=== PATIENT | female | born 1955 | race African-American/Black ===

== ENCOUNTER 2016-08-02 07:59 | Inpatient (IN) ==
[2016-08-02] MEDS ORDERED: MECLIZINE 25 MG TABLET PO STA (09:04)
[2016-08-02] MEDS ORDERED: DIAZEPAM 10 MG/2 ML SYRINGE IV STA (09:04)
--- NOTE | 2016-08-02 09:04 | Emergency Department Note ---
Jurgen Ford Meredith, am scribing for, and in the presence of, Geoff Crawley MD 08: 46. Denisa Ford James D, MD, personally performed the services described in this documentation, ascribed by Karo Seaman in my presence, and it is both accurate and complete . Arrival - Arrival Chief Complaint: Dizziness Stated Complaint: n/v ED Nursing Triage Note: Pt c/o Dizziness, nausea, and vomiting since 0700. Mode of Arrival: Wheelchair Limitations: No Limitations Source: Patient, Significant other (), Old Records Reviewed, RN Notes Reviewed Time Seen by Provider: 08/02/16 08:44 - History of Present Illness HPI Narrative: Pt is a 61 y/o black female reporting to the ED with c/o dizziness, nausea, and vomiting which onset at 0700 this morning. She describes the dizziness at room spinning which is worse when moving her head. Pt has a history of CAD, HTN, and HLD. notes that pt had a CABG on 2015. Onset (ago): hour(s) Allergies/Adverse Reactions: Allergies Allergy/AdvReac Type Severity Reaction Status Date / Time No Known Allergies Allergy Unverified 03/29/16 11:43 Home Medications: Home Medications Medication Instructions Recorded Confirmed Type Aspirin [Ecotrin] 81 mg PO DAILY 04/04/16 08/02/16 History Diltiazem HCl [Diltiazem ER (12 90 mg PO BID 04/04/16 08/02/16 History hr)] Lovastatin 20 mg PO DAILY W/SUPPER 04/04/16 08/02/16 History Triamterene/Hydrochlorothiazid 1 tablet PO DAILY 04/04/16 08/02/16 History [Triamterene-Hctz 75-50 mg Tab] Review of System - Review of System 12 point system: reviewed and no additional remarkable complaints except as stated - Review of System Gastrointestinal: Present: as per HPI, nausea, vomiting Neurological: Present: as per HPI, vertigo Medical,Surgical,& Family Hx - Medical History Cardio: History of: CAD, Hypertension Endocrine: History of: Dyslipidemia - Surgical History Cardiac Surgeries: Sugical HX of: Cardiac Catheterization, Cardiac Surgery ( CABG Mar 22) Abdominal Surgeries: Surgical HX of: Cholecystectomy Reproductive Surgeries: Surgical HX of;: Hysterectomy Orthopedic Surgeries: Surgical HX of;: Orthopedic Surgery (left wrist surgery) - Family History Family History: Reports;: Family Cancer, Family Diabetes, Family Heart Disease, Family Hypertension, Family Stroke - Social History Smoking Status: Never smoker Exam Physical Examination: GENERAL: This is a well-nourished, well-developed black female in no apparent distress. VITAL SIGNS: Temperature: 97.0, Pulse: 82, Respirations: 18, Blood pressure: 194 /107, O2 Saturation: 99 HEENT: Head is normocephalic and atraumatic. Pupils are equally round and reactive to light. Extraocular movement are intact. Oropharynx is benign with moist mucous membranes. [place]-Hallpike maneuver is negative. NECK: Neck is soft and supple without tenderness. There are no masses. There is no lymphadenopathy. LUNGS: Lungs are clear to auscultation bilaterally. Chest rises symmetrically. There is no chest wall tenderness. CV: Heart is regular rate and rhythm without murmurs, rubs, or gallops. ABDOMEN: Abdomen is soft, non-tender to palpation. There are no abnormal masses palpated. There is no organomegaly. Bowel sounds are present and active. SKIN: Skin is warm and dry. No rash. EXTREMITIES: Patient has full range of motion without tenderness. There is no pedal edema. NEUROLOGIC: Awake, alert, and oriented x4. Cranial nerves II through XII are grossly intact. There are no motorsensory deficits. PSYCHIATRIC: Normal affect. Normal mood. Vital Signs: Vital Signs Temperature 98.2 F 08/03/16 04:00 Pulse Rate 72 08/03/16 04:00 Respiratory Rate 20 08/03/16 04:00 Blood Pressure 146/80 08/03/16 04:00 O2 Sat by Pulse Oximetry 98 08/03/16 04:00 Course Course Narrative: Liver was unsuccessful. Patient continues to have nausea or vomiting. She will be admitted. - Consultations Consultation #1: Discussed with hospitalist. Patient will be admitted to their service. Time: 14:01 Results - Labs CBC & BMP: 08/02/16 09:09 08/02/16 09:09 Lab Results: I have reviewed the patients labs Labs: Laboratory Tests 08/02/16 09:09 WBC 10.4 RBC 4.94 Hgb 12.7 Hct 40.7 MCV 82.4 L MCH 26 L MCHC 31.2 L Plt Count 233 Neut % (Auto) 76.0 H Lymph % (Auto) 16.4 L Neut # (Auto) 7.9 H Laboratory Tests 08/02/16 09:09 INR 1.1 PT Patient/Control Mix 11.2 - EKG EKG results: interpreted by CARMEN (EKG: Normal sinus rhythm with a rate of 66, sinus arrhythmia, nonspecific ST-T wave changes, normal axis.) - Diagnostic Findings Procedure: Chest x-ray: image reviewed by me (Old median sternotomy, no infiltrates, no pleural effusions.), CT: image reviewed by me, report reviewed by me (CT head: No acute intracranial lesion or hemorrhage.) Disposition Clinical Impression: Vertigo Case discussed with: patient Disposition: Still a Patient Condition: Stable Time of Disposition: 09:02
[2016-08-02] MEDS ORDERED: ONDANSETRON 4 MG/2 ML VIAL IV STA (09:07)
[2016-08-02] MEDS ORDERED: ONDANSETRON 4 MG/2 ML VIAL ONE ×2 (09:12→15:57)
[2016-08-02] MEDS ORDERED: DIAZEPAM 10 MG/2 ML SYRINGE ONE (09:12)
[2016-08-02] MEDS ORDERED: MECLIZINE 25 MG TABLET ONE ×2 (09:13→09:45)
[2016-08-02 09:17] LABS: Basophils % 0.4 % (0.0-0.8); Eosinophils # 0.2 10*3/uL (0.0-0.87); Eosinophils % 2.3 % (0.00-10.9); Hematocrit 40.7 VOL% (35.7-47.0); Hemoglobin 12.7 GM/DL (12.0-16.0); Immature Granulocytes % 0.6 %; Immature Granulocytes Absolute 0.06 #; Lymphocytes # 1.7 10*3/uL (1.4-4.0); Lymphocytes % 16.4 % (21.3-54.2); Mean Corpuscular HGB Conc 31.2 GM/DL (32-36); Mean Corpuscular Hemoglobin 26 PG (27-34); Mean Corpuscular Volume 82.4 FL (87-102); Mean Platelet Volume 11.5 FL (9.6-12.0); Monocytes # 0.5 10*3/uL (0.11-0.8); Monocytes % 4.3 % (1.7-12.7); Neutrophils # 7.9 10*3/uL (1.4-7.4); Platelet Count 233 T/CUMM (130-400); Red Blood Count 4.94 MC/CUMM (3.8-5.5); Red Cell Distribution Width 14.5 % (9.3-17.3); White Blood Count 10.4 T/CUMM (4-12)
[2016-08-02 09:26] LABS: INR 1.1; PT Patient Result 11.2 SECS
--- NOTE | 2016-08-02 09:47 | CT Report ---
CT head/brain wo con Indication: Dizziness Comparison: None Technique: Multiple axial tomographic images of the brain were obtained without the use of intravenous contrast. Findings: Midline structures are nondisplaced. There is no acute intracranial hemorrhage or evidence of hydrocephalus. There is complete opacification of the right mastoid air cells. Dural sinus diverticulum noted protruding into the right mastoid air cells which has been associated with tinnitus. Paranasal sinuses are clear. Atherosclerotic calcifications present. IMPRESSION: Complete opacification of the right mastoid air cells. Clinically correlate for mastoiditis. No acute intracranial abnormality demonstrated otherwise. PROCEDURE INTERPRETED AT [facility] DEPARTMENT OF RADIOLOGY Final Report Signed by: Dr Jose Turner
[2016-08-02 09:58] LABS: Alanine Aminotransferase 24 U/L (13-56); Albumin 4.1 G/DL (3.4-5.0); Alkaline Phosphatase 90 U/L (45-117); Aspartate Amino Transferase 19 U/L (0-37); Bilirubin,Total < 0.39 MG/DL (0.2-1.0); Blood Urea Nitrogen 30 MG/DL (7-18); Calcium 11.2 MG/DL (8.5-10.1); Free T4 (Free Thyroxine) 0.89 NG/DL (0.76-1.46); Glucose 169 MG/DL (74-106); Osmolality,Calculated 288.4 MOS/KG (273-304); Potassium 3.8 MMOL/L (3.5-5.1); Sodium 140 MMOL/L (136-145); Total Protein 8.2 G/DL (6.4-8.3)
[2016-08-02 10:04] LABS: Apearance,Urine CLOUDY (Clear); Bacteria,Urine Occasional /HPF (Few); Bilirubin,Urine Negative (Negative); Blood, Urine Negative (Negative); Glucose,Urine (UA) Negative (Negative); Ketones,Urine Negative (Negative); Nitrite,Urine Negative (Negative); Protein,Urine Negative; RBC,Urine 3 /HPF (0-4); Urine Color Yellow (Yellow); Urine Specific Gravity 1.013 (1.001-1.035); Urine Urobilinogen < 2.0 EU/DL (0.2-1.0); WBC,Urine 1 /HPF (0-6)
--- NOTE | 2016-08-02 10:10 | XRay Report ---
XR chest 1V portable Indication: SOB Comparison: Chest x-ray dated April 10, 2016 Technique: Single frontal view of the chest Findings: Heart size appears within normal limits status post sternotomy. Chronic change of the lungs without focal consolidation, pleural effusion, or pneumothorax. Osseous and surrounding soft tissue structures appear grossly unchanged. IMPRESSION: No acute cardiopulmonary process demonstrated. PROCEDURE INTERPRETED AT [facility] DEPARTMENT OF RADIOLOGY Final Report Signed by: Dr Jose Turner
--- NOTE | 2016-08-02 10:24 | EKG Report ---
Stationary ECG Study [facility] ER Test Date: 08/02/2016 8:11:44 AM Pat Name: REMI ZAVALA Department: Room: Gender: F Manager [employer]: : 1955 Requested by: Geoff Olsen Order Number: [id number] Luz MD: REYNOLD BRIGGS Intervals [place] Rate: 66 P: 57 IL: 157 QRS: 0 QRSD: 100 T: 53 QT: 398 QTc: 412 Interpretive Statements SINUS RHYTHM NON-SPECIFIC ST-T ABNORMALITIES Electronically Signed On 08-03-16 10:32:33 CDT by REYNOLD BRIGGS [email or web address]
--- NOTE | 2016-08-02 15:46 | Hospitalist History & Physical ---
Assessment and Plan (1) Vertigo Status: Acute Assessment and plan: Telemetry monitoring. Neuro checks. TSH/CBC/BMP in am. CT already done. Meclizine PO ordered. Current Visit: Yes History of Present Illness Chief complaint: dizziness History of present illness: Ms. Rosa is a 61-year-old black female patient who presented to the ED with complaints of dizziness and nausea with vomiting. Patient states that she was at work this morning around 0710 when she became dizzy while standing. She almost fell but grabbed onto the desk for support and her coworkers helped her to a chair during this time she began to vomit. Patient denies having any dizzy spells prior to this. Her was called and he brought her in to the ED. She has a history of hypertension, CAD, thyroid issues, and recently had a CABG 3 on April 04, 2016. Pt. denies any vision loss, lost of consciousness, but admits to ringing in the ears at time of dizziness. Pt also denies fever, chills , chest pain, palpitations or ear drainage. In ED patient states she experienced some nausea and vomiting during testing. At present, pt states she feels sick on her stomach but does not feel she is going to vomit. Pt. will be admitted for observation. Home Medications Medication Instructions Recorded Confirmed Type Aspirin [Ecotrin] 81 mg PO DAILY 04/04/16 08/02/16 History Diltiazem HCl [Diltiazem ER (12 90 mg PO BID 04/04/16 08/02/16 History hr)] Lovastatin 20 mg PO DAILY W/SUPPER 04/04/16 08/02/16 History Triamterene/Hydrochlorothiazid 1 tablet PO DAILY 04/04/16 08/02/16 History [Triamterene-Hctz 75-50 mg Tab] Diazepam Tab [Valium Tab] 5 mg PO TID PRN #20 tablet 08/02/16 Rx Meclizine [Antivert] 25 mg PO QID PRN #20 tablet 08/02/16 Rx Ondansetron [Ondansetron Odt] 4 mg PO Q4H PRN #10 tab.rapdis 08/02/16 Rx predniSONE TAB [PredniSONE] 20 mg PO BID #20 tablet 08/02/16 Rx Allergies Allergy/AdvReac Type Severity Reaction Status Date / Time No Known Allergies Allergy Unverified 03/29/16 11:43 Medical,Surgical,& Family Hx - Medical History Cardio: History of: CAD, Hypertension Endocrine: History of: Dyslipidemia - Surgical History Cardiac Surgeries: Sugical HX of: Cardiac Catheterization, Cardiac Surgery ( CABG Mar 22) Abdominal Surgeries: Surgical HX of: Cholecystectomy Reproductive Surgeries: Surgical HX of;: Hysterectomy Orthopedic Surgeries: Surgical HX of;: Orthopedic Surgery (left wrist surgery) - Family History Family History: Reports;: Family Cancer, Family Diabetes, Family Heart Disease, Family Hypertension, Family Stroke - Social History Smoking Status: Never smoker - Constitutional Constitutional: Present: headache(s). Absent: chills, fever(s), weakness - EENT Eyes: Absent: loss of vision Ears: Present: tinnitus Nose, mouth and throat: Present: vertigo. Absent: headache(s) - Cardiovascular Cardiovascular: Absent: dyspnea, edema - Respiratory Respiratory: Absent: cough - Gastrointestinal Gastrointestinal: Absent: abdominal pain - Neurological Neurological: Present: abnormal gait, dizziness, headache(s). Absent: numbness Exam - Constitutional General appearance: normal weight, no acute distress - Head Head exam: Present: normal inspection, normocephalic - Eye Eye exam: Present: EOMI Pupils: Present: ROSA ELENA - Neck Neck exam: Present: normal inspection - Respiratory Respiratory exam: Present: clear to auscultation bilaterally - Cardiovascular Cardiovascular exam: Present: regular rate and rhythm - GI/Abdominal GI/Abdominal exam: Present: normal bowel sounds, soft. Absent: tenderness - Extremities Exam Extremities exam: Present: normal inspection, normal capillary refill, full ROM - Neurological Exam Neurological exam: Present: alert, oriented X3 - Psychiatric Psychiatric exam: Present: normal affect, normal mood - Skin Skin exam: Present: normal color, warm, dry Results - Labs CBC & BMP: 08/02/16 09:09 08/02/16 09:09 Lab Results: I have reviewed the past 24 hour labs
[2016-08-02] MEDS ORDERED: ONDANSETRON 4 MG/2 ML VIAL IV ONE (16:01)
[2016-08-02] MEDS ORDERED: ACETAMINOPHEN 325 MG TABLET PO PRN (16:39)
[2016-08-02] MEDS ORDERED: ONDANSETRON 4 MG/2 ML VIAL IV PRN (16:39)
[2016-08-02] MEDS ORDERED: BISACODYL 5 MG TABLET PO PRN (16:39)
[2016-08-02] MEDS ORDERED: DOCUSATE SODIUM 100 MG CAPSULE PO PRN (16:39)
[2016-08-02] MEDS ORDERED: MECLIZINE 25 MG TABLET PO PRN (16:39)
[2016-08-02] MEDS ORDERED: hydrALAZINE 20 MG/1 ML VIAL IV PRN (17:55)
[2016-08-02] MEDS: SODIUM CHLORIDE 0.9% 1,000 ML IV SCH (18:52)
[2016-08-02] MEDS ORDERED: diphenhydrAMINE 50 MG/1 ML VIAL IV ONE (18:55)
[2016-08-02] MEDS: FLUTICASONE 50 MCG NASAL SPRAY 16 GM BOTTLE BOTH NARES SCH (20:37)
[2016-08-02] MEDS: CETIRIZINE 5 MG TABLET PO SCH (20:37)
[2016-08-02 21:21] LABS: Apearance,Urine CLEAR (Clear); Bilirubin,Urine Negative (Negative); Blood, Urine Negative (Negative); Glucose,Urine (UA) Negative (Negative); Ketones,Urine 5 mg/dL (Negative); Mucus,Urine Occasional /LPF (Occasional); Nitrite,Urine Negative (Negative); Protein,Urine Negative; RBC,Urine 1 /HPF (0-4); Squamous Epithelial Cell,Urine Occasional /HPF (0-10); Urine Color Yellow (Yellow); Urine Specific Gravity 1.016 (1.001-1.035); Urine Urobilinogen < 2.0 EU/DL (0.2-1.0); WBC,Urine 1 /HPF (0-6)
[2016-08-03] MEDS: METOCLOPRAMIDE 10 MG/2 ML VIAL IV SCH ×4 (01:17→17:57)
[2016-08-03] MEDS: SODIUM CHLORIDE 0.9% 1,000 ML IV SCH ×3 (02:43→14:31)
[2016-08-03 06:36] LABS: Basophils % 0.1 % (0.0-0.8); Eosinophils % 0.1 % (0.00-10.9); Hematocrit 39.5 VOL% (35.7-47.0); Hemoglobin 12.5 GM/DL (12.0-16.0); Immature Granulocytes % 0.3 %; Immature Granulocytes Absolute 0.03 #; Lymphocytes # 1.4 10*3/uL (1.4-4.0); Lymphocytes % 13.6 % (21.3-54.2); Mean Corpuscular HGB Conc 31.6 GM/DL (32-36); Mean Corpuscular Hemoglobin 26 PG (27-34); Mean Corpuscular Volume 81.6 FL (87-102); Mean Platelet Volume 11.3 FL (9.6-12.0); Monocytes # 0.6 10*3/uL (0.11-0.8); Monocytes % 5.5 % (1.7-12.7); Neutrophils # 8.5 10*3/uL (1.4-7.4); Neutrophils % 80.4 % (38.7-73.9); Platelet Count 235 T/CUMM (130-400); Red Blood Count 4.84 MC/CUMM (3.8-5.5); Red Cell Distribution Width 14.3 % (9.3-17.3); White Blood Count 10.6 T/CUMM (4-12)
[2016-08-03 07:09] LABS: Calcium 10.9 MG/DL (8.5-10.1); Potassium 4.1 MMOL/L (3.5-5.1)
[2016-08-03] MEDS: CETIRIZINE 5 MG TABLET PO SCH (09:12)
[2016-08-03] MEDS: ASPIRIN EC 81 MG TABLET PO SCH (09:12)
[2016-08-03] MEDS: PANTOPRAZOLE 40 MG TABLET PO SCH (09:12)
[2016-08-03] MEDS: FLUTICASONE 50 MCG NASAL SPRAY 16 GM BOTTLE BOTH NARES SCH ×2 (09:14→20:55)
[2016-08-03] MEDS: DEXTROSE 5% NACL 0.45% 1,000 ML IV SCH ×2 (11:02→16:19)
[2016-08-03] MEDS ORDERED: methylPREDNISolone ACETATE 80 MG/1 ML VIAL IM ONE (13:54)
--- NOTE | 2016-08-03 13:57 | Hospitalist Progress Note ---
Assessment and Plan (1) Vertigo Status: Acute Assessment and plan: Continue IV fluids. Continue nasal spray. Add a dose of steroids today. Meclizine as needed. Current Visit: Yes (2) Hypertension Status: Chronic Current Visit: Yes Qualifiers: Hypertension type: essential hypertension Qualified Code(s): I10 - Essential (primary) hypertension (3) Dehydration Status: Acute Assessment and plan: Continue IV fluids. Hold triamterene hydrochlorothiazide. Current Visit: Yes Hospitalist: Subjective Interval history: Patient seen and examined. She feels much better today. She still has the dizziness but less nausea and no vomiting. She is receiving IV fluids. I will add a dose of steroids for today. Exam - Constitutional Vitals: Period Temp Pulse Resp BP Sys/Erickson Pulse Ox Last 24 Hr 97.5 F-98.2 F 66-88 14-20 123-167/72-96 97-100 Exam: Constitutional System: Mild distress. No tremulousness. Head: Normocephalic, atraumatic. Ears, Nose and Throat System: No pain or tenderness. No epistaxis or discharge Eyes System: Pupils equal, round, and reactive. Extraocular muscles intact. Neck: Supple, without adenopathy, No jugular venous distention. No thyromegaly, neck mass, or prior surgery apparent. Respiratory System: Chest clear to auscultation. Cardiovascular System: Heart with regular rate and rhythm. No murmur. GI System: Abdomen soft, nontender. Normo active bowel sounds present. Musculoskeletal System: limbs with no pedal edema. Full distal pulses. Neurological System: No discernable sensory deficit. No aphasia. Vertigo with minimal movement Psychiatric System: Conversation is rational Results - Labs CBC & BMP: 08/03/16 06:28 08/03/16 06:28 Lab Results: I have reviewed the past 24 hour labs Specialty Discharge - Follow Up or Referrals
--- NOTE | 2016-08-03 14:14 | Discharge Summary ---
Hospital Course - Hospital Course Hospital Course: Ms. Rosa is a 61-year-old -Tajik female who was admitted to the hospital with sudden onset vertigo with dizziness nausea and vomiting. She was treated with IV fluid hydration as well as antiemetics and meclizine. She was started on anticholinergic medications and nasal spray and given a dose of steroids. Her triamterene hydrochlorothiazide medication was held due to relative dehydration and she was given IV fluids. Her symptoms improved and she has reached maximal benefit from this inpatient hospitalization. She had no other neurologic deficits and no other symptoms to suggest posterior circulation stroke. She is encouraged to follow-up with her primary care physician as an outpatient. Her medications were reviewed and reconciled. The case was discussed with her and her family at the bedside at length. Her is her power of contract attorney and she is a full code. On the day of discharge, the patient is having minimal dizziness. She has no more nausea or vomiting. She tolerated a regular breakfast without difficulties. - Time spent with patient Time with patient DS: Greater than 30 minutes (Total discharge time for this patient, including [id number] time, clinical documentation, medication reconciliation, and discharge planning was 38 minutes.) Diagnosis - Discharge Diagnosis (1) Vertigo Status: Acute (2) Hypertension Status: Chronic (3) Dehydration Status: Resolved (4) Mastoiditis Status: Acute Specialty Discharge - Follow Up or Referrals Follow up with: Carmelo Gaines DO [Physician] - 08/07/16 8:00 am Discharge Plan - Discharge Data Disposition: Disch To Home/Self Care Condition at Discharge: Stable Discharge Diet: advance to your usual diet Activity: resume usual activities as tolerated Hygiene: no restrictions Weight Bearing at Discharge: full weight bearing Contact your physician if you experience:: fever over 101, Nausea/Vomiting, pain uncontrolled by pain medications - Discharge Medications New Amoxicillin/Clav Tab [Augmentin Tab] 875 mg PO BID #20 tablet Cetirizine Tab [ZyrTEC Tab] 5 mg PO DAILY tablet Fluticasone 50 Mcg Nasal [place] [Flonase Nasal [place]] 1 spray BOTH NARES BID # 1 spray Meclizine [Antivert] 25 mg PO TID PRN #30 tablet PRN Reason: Vertigo Continue Triamterene/Hydrochlorothiazid [Triamterene-Hctz 75-50 mg Tab] 1 tablet PO DAILY Lovastatin 20 mg PO DAILY W/SUPPER Aspirin [Ecotrin] 81 mg PO DAILY diltiaZEM HCl [Diltiazem HCl] 90 mg PO BID - Follow Up or Referral Follow Up: Carmelo Gaines DO [Physician] - 08/07/16 8:00 am - Forms/Instructions Forms: Work/School Release Instructions: Diazepam (By mouth), Prednisone (By mouth), Meclizine (By mouth) , Ondansetron (By mouth), Vertigo (ED) Exam - Constitutional Vitals: Period Temp Pulse Resp BP Sys/Erickson Pulse Ox Last 24 Hr 97.5 F-98.2 F 66-88 14-20 123-167/72-96 97-100 Discharge Results Labs on day of discharge: Labs from last 24 hours 08/03/16 08/03/16 08/02/16 06:28 06:28 21:00 WBC 10.6 RBC 4.84 Hgb 12.5 Hct 39.5 MCV 81.6 L MCH 26 L MCHC 31.6 L RDW 14.3 Plt Count 235 MPV 11.3 Neut % (Auto) 80.4 H Lymph % (Auto) 13.6 L [place] % (Auto) 5.5 Eos % (Auto) 0.1 Baso % (Auto) 0.1 Neut # (Auto) 8.5 H Lymph # (Auto) 1.4 [place] # (Auto) 0.6 Eos # (Auto) 0.0 Baso # (Auto) 0.0 Immature Gran % 0.3 Nucleated RBC % 0.0 Immature Gran # 0.03 Nucleated RBCs # 0.00 Sodium 143 Potassium 4.1 Chloride 108 H Carbon Dioxide 25 Anion Gap 14.1 BUN 24 H Creatinine 1.10 H GFR Calculation 70 BUN/Creatinine Ratio 21.00 H Glucose 146 H Calculated Osmolality 291.0 Calcium 10.9 H Urine Color Yellow Urine Appearance Clear Urine pH 6.0 Ur Specific [place] 1.016 Urine Protein Negative Urine Glucose (UA) Negative Urine Ketones 5 Urine Blood Negative Urine Nitrate Negative Urine Bilirubin Negative Urine Urobilinogen < 2.0 H Urine Leukocytes Negative Urine RBC 1 Urine WBC 1 Ur Squamous Epith Cells Occasional Urine Mucus Occasional Ur Culture Indicated? Not indicated DS: Provider Date of admission: 08/02/16 14:16 Primary care physician: . No PCP Attending physician on admission: Yajaira Ziegler MD Consults: 08/02/16 16:46 Consult to Pharmacy [CONS] Routine Reason for Pharmacy Consult: Adjust Meds Renal Funct 08/02/16 16:48 Consult to Dietitian [CONS] Routine Reason for Dietitian: Other Discharging clinician: Yajaira Ziegler MD Expected date of discharge: 08/04/16
[2016-08-03] MEDS ORDERED: DILTIAZEM 90 MG TABLET PO SCH (14:30)
[2016-08-03] MEDS: DILTIAZEM HCL 90 MG PO SCH (14:32)
[2016-08-03] MEDS ORDERED: LOVASTATIN 20 MG TABLET PO SCH (17:00)
[2016-08-03] MEDS: DILTIAZEM 90 MG TABLET PO SCH (20:55)
[2016-08-04] MEDS: DEXTROSE 5% NACL 0.45% 1,000 ML IV SCH (00:35)
[2016-08-04] MEDS: METOCLOPRAMIDE 10 MG/2 ML VIAL IV SCH ×2 (00:37→05:51)
[2016-08-04] MEDS: ASPIRIN EC 81 MG TABLET PO SCH (09:01)
[2016-08-04] MEDS: PANTOPRAZOLE 40 MG TABLET PO SCH (09:01)
[2016-08-04] MEDS: CETIRIZINE 5 MG TABLET PO SCH (09:01)
[2016-08-04] MEDS: DILTIAZEM 90 MG TABLET PO SCH (09:02)
[2016-08-04] MEDS: FLUTICASONE 50 MCG NASAL SPRAY 16 GM BOTTLE BOTH NARES SCH (09:02)
[2016-08-04 09:26] VITALS: BP 105/76
== END 2016-08-04 11:25 | disposition home or self-care (01) | DRG 641 ==
LOC: N.ED 07:59 → N.EDINP 14:16 → N.5E 15:52
PROVIDERS: ADMIT Family Medicine; ATTEND Family Medicine